=== PATIENT | female | born 1985 | race Caucasian/White ===

== ENCOUNTER 2020-05-21 14:22 | Outpatient (REF) | payer OTHER, SELFPAY | END 2020-05-21 14:23 | disposition home or self-care (01) | LOC: HO.LAB 14:22 | PROVIDERS: Visit Provider Internal Medicine | DX: Z20.828 Contact with and (suspected) exposure to other viral communicable diseases (principal) | CPT/HCPCS: C9803; U0003 ==

== ENCOUNTER 2020-06-11 07:19 | Outpatient (REF) | payer OTHER, SELFPAY | END 2020-06-11 07:20 | disposition home or self-care (01) | LOC: HO.LAB 07:19 | PROVIDERS: Visit Provider Internal Medicine | DX: Z20.822 Contact with and (suspected) exposure to COVID-19 (principal) | CPT/HCPCS: 36415; C9803; U0003 ==

== ENCOUNTER 2021-10-11 09:53 | Outpatient (REF) | payer OTHER, SELFPAY ==
[2021-10-14 08:55] LABS: TS Negative Control Passed; TS Panel A 0; TS Panel B 0; TS Positive Control Passed; TSpotTB Invalid (Negative)
== END 2021-10-11 09:54 | disposition home or self-care (01) ==
LOC: HO.HMGCLDS 09:53
PROVIDERS: Visit Provider Physician Assistant
DX: Z11.1 Encounter for screening for respiratory tuberculosis (principal); Z78.9 Other specified health status
CPT/HCPCS: 36415; 86481

== ENCOUNTER 2021-10-19 06:13 | Outpatient (REF) | payer OTHER, SELFPAY ==
[2021-10-22 04:47] LABS: TS Negative Control Passed; TS Panel A 0; TS Panel B 0; TS Positive Control Passed; TSpotTB Negative (Negative)
== END 2021-10-19 06:14 | disposition home or self-care (01) ==
LOC: HO.HMGCLDS 06:13
PROVIDERS: PCP Internal Medicine; Visit Provider Physician Assistant
DX: Z02.0 Encounter for examination for admission to educational institution (principal); Z11.1 Encounter for screening for respiratory tuberculosis
CPT/HCPCS: 36415; 86481

== ENCOUNTER 2023-07-31 12:20 | Outpatient (AMB) | payer OTHER, SELFPAY ==
[2023-07-31 12:23] VITALS: BP 112/66; PULSE 70; O2SAT 99; BMI 26.1
--- NOTE | 2023-07-31 12:23 | A.OFFPC_ITS ---
Vital Signs 07/31/23 12:23 Height 5 ft 6 in Weight 162 lb BMI 26.1 BP 112/66 Blood Pressure Location Lt brachial Position Sitting Pulse 70 Pulse Source Pulse Oximeter Pulse Oximetry (%) 99 Oxygen Delivery Method Room Air Intake Visit Reasons: Physical exam Intake Note: Pt is here today for a PE. Pt has AT HOME [facility]DEP[facility] at [facility] and her last pap was a year ago. Allergies No Known Allergies Allergy (Verified 07/31/23 12:34) Medication List - Last Reconciled 07/31/23 by Juju Abdalla MD copper (ParaGard T 380A) intrauterine Tobacco use date assessed: 07/31/23 Dental Screening Dental Screen Date: 07/31/23 Did you have a dental visit in the last 12 months?: Yes Did you have a dental problem in the last 6 months where you did not have access to dental care?: No Was dental information given to patient?: Patient has dentist HPI HPI Comments History of Present Illness Details 38-year-old lady here today for her phys ical exam. She is currently up-to-date with her cervical cancer screening, goes to [facility], where she also had a ParaGard placed for control . She has been feeling well with no complaints at present time, up-to-date with all her vaccinations [facility] Medical History No pertinent past medical history Surgical History No pertinent past surgical history Family History Maternal Grandfather No problems noted. Maternal Grandmother Substance use disorder Paternal Grandfather Substance use disorder Mother Mental health disorder Social History Housing: House Patient Tobacco Use Status: Never used Tobacco e-Cigarette/Vaping Use: Never Used service: No Current occupational status: student Cognitive needs: No Hearing needs: No Vision needs: No Female Reproductive History Menstrual control method: copper IUCD Other: Goes to [facility] Questionnaire PHQ-9 Over the last 2 weeks, how often have you been bothered by any of the following problems? 1. Little interest or pleasure in doing things: not at all 2. Feeling down, depressed, or hopeless: not at all 3. Trouble falling or staying asleep, or sleeping too much: not at all 4. Feeling tired or having little energy: not at all 5. Poor appetite or overeating: not at all 6. Feeling bad about yourself - or that you are a failure or have let yourself or your family down: not at all 7. Trouble concentrating on things, such as reading the newspaper or watching television: not at all 8. Moving or speaking so slowly that other people could have noticed. Or the opposite - being so fidgety or restless that you have been moving around a lot more than usual: not at all 9. Thoughts that you would be better off or of hurting yourself in some way: not at all Total score: 0 Depression Screening Interpretation: Negative Depression Screening Done: Yes 93606 - PHQ-9 Billing: Yes Source: Developed by Drs. Josue Hernandes, Tiesha Adams, Altaf Hahn and colleagues, with an educational ephraim from [employer]. Thrive Questionnaire Date Thrive assessed: 07/31/23 I am a: Patient What is your living situation today?: I have a steady place to live Within the past 12 months, did the food you bought not last and you didn't have the money to get more?: Never true Within the past 12 months, did you worry whether your food would run out before you got money to buy more?: Never true Do you have trouble paying for medicines?: No Do you have trouble getting transportation to medical appointments?: No Do you have trouble paying your heating and electricity bill?: No Do you have trouble taking care of your child, family member or friend?: No Do you have trouble with day-to-day activities such as bathing, preparing meals, shopping, managing finances, etc.?: No Are you currently unemployed and looking for a job?: No Are you interested in more education?: No Please select the resources that you would like help with: None THRIVE Score: 0 AUDIT C Alcohol Use Questionnaire (AUDIT-C) 1. How often do you have a drink containing alcohol?: Monthly or less 2. How many drinks containing alcohol do you have on a typical day when you are drinking?: 1 or 2 3. How often do you have six or more drinks on one occasion?: Never Total Score: 1 MELINDA-7 AMB Questionnaire MELINDA-7 Date MELINDA - 7 assessed: 07/31/23 Feeling nervous, anxious, or on edge: 0 = Not at all Not being able to stop or control worryin = Not at all Worrying too much about different things: 0 = Not at all Trouble relaxin = Several days Being so restless that it is hard to sit still: 1 = Several days Becoming easily annoyed or irritable: 1 = Several days Feeling afraid as if something awful might happen: 0 = Not at all Total MELINDA-7 score (0-4 normal; 5-9 mild; 10-14 moderate; 15-21 severe): 3 Source: Developed by Drs. Josue Hernandes, Tiesha Adams, Altaf Hahn and colleagues, with an educational ephraim from [employer]. MELINDA-7 Assessment Billing MELINDA-7 Assessment Tool: MELINDA-7 Assessment 49822 Review of Systems Const Reports no additional complaints Eyes Reports no additional complaints ENT Reports no additional complaints Card Reports no additional complaints Resp Reports no additional complaints GI Reports no additional complaints Reports no additional complaints Musc Reports no additional complaints Skin/Breast Reports dry skin and Denies lesions Neuro Reports no additional complaints Psych Reports no additional complaints Endo Reports no additional complaints Dario/Lymph Reports no additional complaints Aller/Immun Reports no additional complaints Physical exam (Primary Care) Vital Signs: Last Vital Signs Pulse 70 07/31/23 12:23 BP 112/66 07/31/23 12:23 Pulse Ox 99 07/31/23 12:23 Oxygen Delivery Method Room Air 07/31/23 12:23 BMI result Body Mass Index 26.1 Tobacco/Smoking Status: Tobacco use Status Tobacco use date assessed 07/31/23 07/31/23 12:27 Patient Tobacco Use Status Never used Tobacco 07/31/23 12:27 e-Cigarette/Vaping Use Never Used 07/31/23 12:24 PHQ-9: PHQ-9 Score PHQ-9: Total score 0 07/31/23 13:12 Depression Screening Interpretation: Negative Thrive Assessment: Date of Thrive Assessment Date Thrive assessed 07/31/23 07/31/23 13:12 Const General: no acute distress and alert Orientation/consciousness: patient oriented x3 [facility] Head: Yes normocephalic Ears: external ears normal, TM's normal bilaterally and EAC's normal General nose exam: Normal external nose present and No nasal discharge present Face and sinus: Yes face symmetric Mouth: Normal oral and palatal mucosa present, oropharynx normal and moist mucous membranes Eyes General: appearance normal, both eyes and all related structures Eyelids: Yes eyelids normal Conjunctivae: conjunctivae normal Sclerae: sclerae normal Pupils: Equal, round and reactive pupils present EOM: EOMs intact bilaterally Neck Neck: Yes full ROM, Yes no lymphadenopathy and Yes supple Thyroid: Thyroid normal Chest Chest palpation & inspection: normal inspection of the chest Breast/axilla inspection: normal inspection of the breasts Breast/axilla palpation: normal palpation of the breasts Resp Effort & Inspection: normal respiratory effort and able to speak in complete sentences Auscultation: clear to auscultation bilaterally Cardio Rate: regular rate Rhythm: regular rhythm Heart sounds: S1 normal heart sound present and S2 normal heart sound present GI Palpation (GI): Soft to palpation, nontender, no guarding and no masses Auscultation: normal bowel sounds General: Yes no CVA tenderness Back/Spine/Pelvis Back: no CVA tenderness and No back tenderness Skin General skin exam: no rashes or lesions noted Neuro General: patient oriented x3, gait normal, moves all extremities, Normal light touch and pain sensation, no focal motor deficits and CN's II-XI intact bilaterally Cranial nerves: Yes Equal, round and reactive pupils present Cognition (Neuro): normal cognition Gait exam (Neuro): Normal gait present Motor exam (neuro): 5/5 motor strength present throughout Extrem General: Yes normal to inspection, Yes full ROM, Yes no joint enlargement, Yes no pedal edema and Yes normal gait Psych Appearance: grossly normal and well kempt Mental Status: mental status grossly normal Speech and movement: Normal speech and movement present Affect: normal affect Attitude: cooperative Thought process: Normal thought process present Thought content: Normal thought content present Assessment and Plan Assessment & Plan (1) Adult general medical exam: Code(s): Z00.00 - Encounter for general adult medical examination without abnormal findings Plan: Will check appropriate labs. Recommended dental visit every 6 months and regular eye exams, at least every 2 years. Take adequate calcium in diet and vitamin-D 3 at 2000 IU per cap once a day, in addition to weight-bearing exercises to help maintain good muscle tone and weight control. Instructed to do self-breast exam, and recommended to get yearly mammogram, starting at age 40. Up-to-date with her cervical cancer screening, goes to [facility]. Up-to-date with her vaccinations (2) Dry skin: Code(s): L85.3 - Xerosis cutis Plan: Advised to use most rising body wash, apply CeraVe or Cetaphil lotion after a bath (3) Encounter for physical examination: Code(s): Z00.00 - Encounter for general adult medical examination without abnormal findings Orders: Orders Alanine Aminotransferase 07/31/23 L85.3 - Xerosis cutis, Z00.00 - Encounter for general adult medical examination without abnormal findings, Z13.1 - Encounter for screening for diabetes mellitus, Z13.220 - Encounter for screening for lipoid disorders Aspartate Amino Transferase 07/31/23 L85.3 - Xerosis cutis, Z00.00 - Encounter for general adult medical examination without abnormal findings, Z13.1 - Encounter for screening for diabetes mellitus, Z13.220 - Encounter for screening for lipoid disorders Basic Metabolic Panel Fasting 07/31/23 L85.3 - Xerosis cutis, Z00.00 - Encounter for general adult medical examination without abnormal findings, Z13.1 - Encounter for screening for diabetes mellitus, Z13.220 - Encounter for screening for lipoid disorders Lipid Panel 07/31/23 L85.3 - Xerosis cutis, Z00.00 - Encounter for general adult medical examination without abnormal findings, Z13.1 - Encounter for screening for diabetes mellitus, Z13.220 - Encounter for screening for lipoid disorders Vitamin D 25-OH Total 07/31/23 L85.3 - Xerosis cutis, Z00.00 - Encounter for general adult medical examination without abnormal findings, Z13.1 - Encounter for screening for diabetes mellitus, Z13.220 - Encounter for screening for lipoid disorders TSH reflex Free T4 07/31/23 L85.3 - Xerosis cutis, Z00.00 - Encounter for general adult medical examination without abnormal findings, Z13.1 - Encounter for screening for diabetes mellitus, Z13.220 - Encounter for screening for lipoid disorders Coding Level of Care Code Est Pt Prev Care 18-39y(52203) Diagnoses Adult general medical exam Z00.00 Dry skin L85.3 Encounter for physical examination Z00.00 Additional Codes MELINDA-7 Assessment Billing - MELINDA-7 Assessment Tool: MELINDA-7 Assessment [id number] ([id number])
== END 2023-07-31 12:54 | disposition home or self-care (01) ==
PROVIDERS: PCP Internal Medicine; Visit Provider Internal Medicine
DX: Z00.00 Encounter for general adult medical examination without abnormal findings (principal); L85.3 Xerosis cutis
CPT/HCPCS: 99395

== ENCOUNTER 2024-08-05 08:59 | Outpatient (REF) | payer OTHER, SELFPAY ==
[2024-08-05 10:24] LABS: Hematocrit 38.8 % (37.0-47.0)
[2024-08-05 10:51] LABS: Alanine Aminotransferase 6 U/L (0-31); Aspartate Amino Transferase 32 U/L (5-31); Cholesterol 163 mg/dL (<200); Glucose Fasting 78 mg/dL (60-99); HDL Cholesterol 55 mg/dL (>40); LDL Cholesterol Calculated 98 mg/dL (<100); Triglycerides 51 mg/dL (<150)
== END 2024-08-05 09:00 | disposition home or self-care (01) ==
LOC: HO.HMGCLDS 08:59
PROVIDERS: PCP Internal Medicine; Visit Provider Internal Medicine
DX: Z00.01 Encounter for general adult medical examination with abnormal findings (principal); Z13.220 Encounter for screening for lipoid disorders; Z13.1 Encounter for screening for diabetes mellitus; Z78.9 Other specified health status
CPT/HCPCS: 36415; 80061; 82947; 84450; 84460; 85014; 85018; 96127; 99395

== ENCOUNTER 2024-08-05 09:24 | Outpatient (AMB) | payer OTHER, SELFPAY ==
--- NOTE | 2024-08-05 09:30 | MHC.PC.OV ---
Vital Signs 08/05/24 09:34 Height 5 ft 6 in Weight 165 lb BMI 26.6 BP 110/68 Blood Pressure Location Rt brachial Position Sitting Pulse 88 Pulse Source Pulse Oximeter Temp 98.1 F Temp Source Oral Pulse Oximetry (%) 97 Oxygen Delivery Method Room Air Intake Visit Reasons: Annual PE Intake Note: Pt is here today for her PE: Last papsmear 12/19/22 Allergies No Known Allergies Allergy (Verified 08/05/24 09:54) Medication List - Last Reconciled 08/05/24 by Juju Abdalla MD copper (ParaGard T 380A) intrauterine Tobacco use date assessed: 08/05/24 Dental Screening Dental Screen Date: 08/05/24 Did you have a dental visit in the last 12 months?: Yes Did you have a dental problem in the last 6 months where you did not have access to dental care?: No Was dental information given to patient?: Patient has dentist HPI Annual PE HPI Details 39-year-old lady here today for physical exam. She currently sees [facility], has ParaGard IUD in place. Last cervical cancer screening was done in 2022 with benign findings. She has been feeling well, with no complaints at present time. She is up-to-date with her yearly flu vaccine, has had COVID vaccines in the past but did not get the booster and is up-to-date with her Tdap PFSH Medical History Uses control No pertinent past medical history Surgical History No pertinent past surgical history Family History Maternal Grandfather No problems noted. Maternal Grandmother Substance use disorder Paternal Grandfather Substance use disorder Mother Mental health disorder Social History Housing: House Patient Tobacco Use Status: Never used Tobacco e-Cigarette/Vaping Use: Never Used service: No Current occupational status: employed Cognitive needs: No Hearing needs: No Vision needs: No Female Reproductive History Menstrual control method: copper IUCD Date of last pap smear: 12/19/22 Other: Sees [facility] Questionnaire PHQ-9 Over the last 2 weeks, how often have you been bothered by any of the following problems? 1. Little interest or pleasure in doing things: not at all 2. Feeling down, depressed, or hopeless: not at all 3. Trouble falling or staying asleep, or sleeping too much: not at all 4. Feeling tired or having little energy: not at all 5. Poor appetite or overeating: not at all 6. Feeling bad about yourself - or that you are a failure or have let yourself or your family down: not at all 7. Trouble concentrating on things, such as reading the newspaper or watching television: not at all 8. Moving or speaking so slowly that other people could have noticed. Or the opposite - being so fidgety or restless that you have been moving around a lot more than usual: not at all 9. Thoughts that you would be better off or of hurting yourself in some way: not at all Total score: 0 Depression Screening Interpretation: Negative Depression Screening Done: Yes 23704 - PHQ-9 Billing: Yes Source: Developed by Drs. Josue Hernandes, Tiesha Adams, Altaf Hahn and colleagues, with an educational ephraim from [employer] Thrive Questionnaire Date Thrive assessed: 08/05/24 I am a: Patient What is your living situation today?: I have a steady place to live Within the past 12 months, did the food you bought not last and you didn't have the money to get more?: Never true Within the past 12 months, did you worry whether your food would run out before you got money to buy more?: Never true Do you have trouble paying for medicines?: No Do you have trouble getting transportation to medical appointments?: No Do you have trouble paying your heating and electricity bill?: No Do you have trouble taking care of your child, family member or friend?: No Do you have trouble with day-to-day activities such as bathing, preparing meals, shopping, managing finances, etc.?: No Are you currently unemployed and looking for a job?: No Are you interested in more education?: No Please select the resources that you would like help with: None Currently or been in a relationship where the following occur: No concerns reported THRIVE Score: 0 AUDIT C Alcohol Use Questionnaire (AUDIT-C) 1. How often do you have a drink containing alcohol?: Never Total Score: 0 MELINDA-7 AMB Questionnaire MELINDA-7 Date MELINDA - 7 assessed: 08/05/24 Feeling nervous, anxious, or on edge: 1 = Several days Not being able to stop or control worryin = Not at all Worrying too much about different things: 0 = Not at all Trouble relaxin = Several days Being so restless that it is hard to sit still: 0 = Not at all Becoming easily annoyed or irritable: 1 = Several days Feeling afraid as if something awful might happen: 0 = Not at all Total MELINDA-7 score (0-4 normal; 5-9 mild; 10-14 moderate; 15-21 severe): 3 Source: Developed by Drs. Josue Hernandes, Tiesha Adams, Altaf Hahn and colleagues, with an educational ephraim from [employer]. MELINDA-7 Assessment Billing MELINDA-7 Assessment Tool: MELINDA-7 Assessment 20048 Review of Systems Const Reports no additional complaints Eyes Reports no additional complaints ENT Reports no additional complaints Card Reports no additional complaints Resp Reports no additional complaints GI Reports no additional complaints Reports no additional complaints Musc Reports no additional complaints Skin/Breast Reports dry skin and Denies lesions Neuro Reports no additional complaints Psych Reports no additional complaints Endo Reports no additional complaints Dario/Lymph Reports no additional complaints Aller/Immun Reports no additional complaints Physical exam (Primary Care) Vital Signs: Last Vital Signs Temp 98.1 F 08/05/24 09:34 Pulse 88 08/05/24 09:34 BP 110/68 08/05/24 09:34 Pulse Ox 97 08/05/24 09:34 Oxygen Delivery Method Room Air 08/05/24 09:34 BMI result Body Mass Index 26.6 Tobacco/Smoking Status: Tobacco use Status Tobacco use date assessed 08/05/24 08/05/24 09:34 Patient Tobacco Use Status Never used Tobacco 08/05/24 09:30 e-Cigarette/Vaping Use Never Used 08/05/24 09:30 PHQ-9: PHQ-9 Score PHQ-9: Total score 0 08/05/24 09:56 Depression Screening Interpretation: Negative Thrive Assessment: Date of Thrive Assessment Date Thrive assessed 08/05/24 08/05/24 09:39 Currently or been in a relationship where the following occur: No concerns reported Const General: no acute distress and alert Orientation/consciousness: patient oriented x3 [facility] Head: Yes normocephalic Ears: external ears normal, TM's normal bilaterally and EAC's normal General nose exam: Normal external nose present Face and sinus: Yes face symmetric Mouth: Normal oral and palatal mucosa present, oropharynx normal and moist mucous membranes Eyes General: appearance normal, both eyes and all related structures Eyelids: Yes eyelids normal Conjunctivae: conjunctivae normal Sclerae: sclerae normal Pupils: Equal, round and reactive pupils present EOM: EOMs intact bilaterally Neck Neck: Yes full ROM, Yes no lymphadenopathy and Yes supple Thyroid: Thyroid normal Chest Chest palpation & inspection: normal inspection of the chest Breast/axilla inspection: normal inspection of the breasts Breast/axilla palpation: normal palpation of the breasts Resp Effort & Inspection: normal respiratory effort and able to speak in complete sentences Auscultation: clear to auscultation bilaterally Cardio Rate: regular rate Rhythm: regular rhythm Heart sounds: S1 normal heart sound present and S2 normal heart sound present GI Palpation (GI): Soft to palpation, nontender, no guarding and no masses Auscultation: normal bowel sounds General: Yes no CVA tenderness Back/Spine/Pelvis Back: no CVA tenderness and No back tenderness Skin General skin exam: no rashes or lesions noted Neuro General: patient oriented x3, gait normal, moves all extremities, Normal light touch and pain sensation, no focal motor deficits and CN's II-XI intact bilaterally Cranial nerves: Yes Equal, round and reactive pupils present Cognition (Neuro): normal cognition Gait exam (Neuro): Normal gait present Motor exam (neuro): 5/5 motor strength present throughout Extrem General: Yes normal to inspection, Yes full ROM, Yes no joint enlargement, Yes no pedal edema and Yes normal gait Psych Appearance: grossly normal and well kempt Mental Status: mental status grossly normal Speech and movement: Normal speech and movement present Affect: normal affect Attitude: cooperative Thought process: Normal thought process present Thought content: Normal thought content present Coding Level of Care Code Est Pt Prev Care 18-39y(11340) Diagnoses Annual visit for general adult medical examination with abnormal findings Z00.01 Additional Codes MELINDA-7 Assessment Billing - MELINDA-7 Assessment Tool: MELINDA-7 Assessment 61046 ([id number]) PHQ-9 - 31734 - PHQ-9 Billing: Yes ([id number]) Assessment & Plan Assessment & Plan (1) Annual visit for general adult medical examination with abnormal findings: Code(s): Z00.01 - Encounter for general adult medical examination with abnormal findings Plan: Will check appropriate labs. Continue regular dental visit every 6 months and regular eye exams, at least every 2 years. Take adequate calcium in diet and vitamin-D 3 at 2000 IU per cap once a day, in addition to weight-bearing exercises to help maintain good muscle tone and weight control. Instructed to do self-breast exam, and recommended to get yearly mammogram, starting at age 40. Up-to-date with her cervical cancer screening, goes to [facility] with last Pap smear done in 2022 showing negative results. Reminded to get yearly flu shots, up-to-date with Tdap, has had COVID vaccinations in the past but does not want to get the booster
[2024-08-05 09:34] VITALS: BP 110/68; PULSE 88; TEMP 36.7; O2SAT 97; BMI 26.6
== END 2024-08-05 10:10 | disposition home or self-care (01) ==
PROVIDERS: PCP Internal Medicine; Visit Provider Internal Medicine
DX: Z00.01 Encounter for general adult medical examination with abnormal findings (principal)